=== PATIENT | female | born 1995 | race African-American/Black ===

== ENCOUNTER 2016-09-27 16:34 | Emergency (ER) | payer MEDICAID ==
[~2016-09-27] VITALS: Ht 162.6 cm; Wt 70.0 kg
[~2016-09-27 16:34] MED LIST: DOXY10TA PO; IBUP400 PO; IBUP800 PO; MACR100C2 PO; PENI500T PO
[2016-09-27 16:37] VITALS: BP 140/86; PULSE 76; RESP 16; TEMP 98.2; O2SAT 99
[2016-09-27] MEDS ORDERED: ONDANSETRON ODT 4 MG TAB PO ONE (17:00)
[2016-09-27] MEDS ORDERED: MUCI30TA2 PO (17:05)
[2016-09-27] MEDS ORDERED: ZOFR8TAB4 SL (17:05)
--- NOTE | 2016-09-27 17:05 | PD ---
HPI Chief Complaint: ENT Complaint Time Seen by Provider: 16:53 Travel History International Travel<30 days: No Contact w/Intl Traveler<30days: No Traveled to known affect area: No History of Present Illness HPI 21-year-old female here with complaint of ear pain. Patient notes a itchy, discomfort in the bilateral ears, nasal congestion and runny nose for the last week. She also notes associated nausea, vomiting. She is , and has had issues with this with previous . She has no abdominal pain, vaginal bleeding. She was seen in our ER previously and given a prescription for diceglis, but was unable to fill this due to insurance is not compliant. PFSH Past Medical History Hx Anticoagulant Therapy: No Diabetes: No Diminished Hearing: No ?: : 1 Para: 1 Social History Alcohol Use: Yes Tobacco Use: No Substance Use: No Allergies-Medications (Allergen,Severity, Reaction): Coded Allergies: No Known Allergies (Unverified , 08/28/16) Reported Meds & Prescriptions Reported Meds & Active Scripts Active Macrobid (Nitrofurantoin Monoh/Nitrofur Macro) 100 Mg Cap 100 Mg PO BID 5 Days Diclegis (Doxylamine-Pyridoxine) 10-10 Mg Tab 2 Tab PO DIRECTED Take 2 tablets at bedtime. One additional tablet may be taken in the morning or midafternoon. Do not take as needed. Taper off to discontinue. Pen Vk (Penicillin V Potassium) 500 Mg Tab 500 Mg PO Q6 Motrin 800 Mg Tab (Ibuprofen) 800 Mg Tab 800 Mg PO Q8H PRN 10 Days Reported Motrin 400 mg Tab (Ibuprofen) 400 Mg Tab 800 Mg PO DIRECTED Review of Systems Except as stated in HPI: all other systems reviewed are Neg Physical Exam Narrative GENERAL: Well-appearing female in no acute distress SKIN: Warm and dry. HEAD: Normocephalic. EYES: No scleral icterus. No injection or drainage. ENT: Mucous membranes pink and moist. TMs clear bilaterally. Clear occlusion behind both ear. Nasal mucosal injection. NECK: Supple CARDIOVASCULAR: Regular rate and rhythm. RESPIRATORY: No accessory muscle use. MUSCULOSKELETAL: Normal gait NEUROLOGICAL: Awake and alert. Normal speech. PSYCHIATRIC: Appropriate mood and affect; insight and judgment normal. Data Data Last Documented VS Vital Signs Date Time Temp Pulse Resp B/P Pulse Ox O2 Delivery O2 Flow Rate FiO2 09/27/16 16:37 98.2 76 16 140/86 99 Room Air Orders Ondansetron Odt (Zofran Odt) (09/27/16 17:00) [facility] Medical Decision Making Medical Screen Exam Complete: Yes Emergency Medical Condition: Yes Medical Record Reviewed: Yes Differential Diagnosis Bilateral ear pain, nausea. Patient has nasal mucosal injection, with clear effusion behind TMs bilaterally consistent with viral syndrome. Patient was instructed to use decongestant. With her nausea, she has had this his previous . She is well-appearing, clinically well-hydrated with normal vital signs. We'll treat with Zofran when necessary. Narrative Course Given Zofran. Diagnosis Primary Impression: Upper respiratory infection Qualified Code: J06.9 - Upper respiratory tract infection, unspecified type Additional Impression: Nausea/vomiting in Additional Instructions: Zofran as needed for nausea, vomiting. Mucinex as prescribed. Follow-up with [employer] as discussed. Med/Other Pt SpecificInfo: Prescription(s) given Scripts Dextromethorphan-Guaifenesin (Mucinex DM)30-600 Mg Tab1 Tab PO BID PRN (CHEST CONGESTION AND/OR COUGH) #10 TAB Ref 0 Prov:Isabella Mejia MD 09/27/16 Ondansetron Odt (Zofran Odt)8 Mg Tab8 Mg SL Q8H PRN (NAUSEA OR VOMITING) #10 TAB Ref 0 Prov:Isabella Mejia MD 09/27/16 Disposition: 01 DISCHARGE HOME Condition: Stable Isabella Mejia MD Sep 27, 2016 17:05
[2016-11-19] MEDS ORDERED: PREN1CAP7 PO (11:00)
[2016-11-24] MEDS ORDERED: AZIT250T3 PO (13:46)
[2016-11-24] MEDS ORDERED: METR0.7512 VAGINAL (13:46)
[2016-12-21] MEDS ORDERED: FERRTAB2 PO (16:24)
[2017-01-27] MEDS ORDERED: FERR325T72 PO (10:11)
[2017-02-17] MEDS ORDERED: TERC0.4C2 VAGINAL (11:35)
[2017-02-17] MEDS ORDERED: AMPI500C8 PO (11:35)
[2017-03-23] MEDS ORDERED: METR500T10 PO (16:52)
[2017-03-23] MEDS ORDERED: ZITH1POW PO (16:52)
[2017-03-23] MEDS ORDERED: TERC0.4C2 VAGINAL (16:53)
== END 2016-09-27 17:21 | disposition home or self-care (01) ==
LOC: NEPC 16:34
DX: O99.519 Diseases of the respiratory system complicating pregnancy, unspecified trimester (principal); J06.9 Acute upper respiratory infection, unspecified; O21.9 Vomiting of pregnancy, unspecified; Z3A.00 Weeks of gestation of pregnancy not specified
CPT/HCPCS: 99283

== ENCOUNTER 2016-10-27 10:15 | Emergency (ER) | payer MEDICAID ==
[~2016-10-27] VITALS: Ht 162.6 cm; Wt 67.0 kg
[~2016-10-27 10:15] MED LIST changes: -DOXY10TA PO; -IBUP400 PO; -IBUP800 PO; -MACR100C2 PO; -PENI500T PO; +ZOFR8TAB4 SL
[2016-10-27 10:23] VITALS: BP 118/79; PULSE 99; RESP 16; TEMP 98.3; O2SAT 100
[2016-10-27] MEDS ORDERED: SODIUM CHLOR 0.9% 1000 ML INJ 1,000 ML IV ONE (10:40)
[2016-10-27] MEDS ORDERED: ACETAMINOPHEN 325 MG TAB PO ONE (10:45)
[2016-10-27 10:52] LABS: BLOOD, URINE NEG (NEG); GLUCOSE,URINE NEG (NEG); KETONE, URINE NEG (NEG); NITRITE,URINE NEG (NEG)
[2016-10-27 11:00] LABS: BACTERIA, URINE OCC /hpf; COMMENT (UR) CULT NOT INDICATED; CULTURE IF INDICATED CULT NOT INDICATED; METHOD OF COLLECTION CLEAN CATCH; SQUAMOUS EPITHELIAL CELL URINE > 8 /hpf (0-5); URINE COLOR YELLOW (YELLW/STRAW); WBC, URINE 0-2 /hpf (0-5)
--- NOTE | 2016-10-27 11:02 | PD ---
HPI Chief Complaint: Related Problem Time Seen by Provider: 10:39 Travel History International Travel<30 days: No Contact w/Intl Traveler<30days: No Traveled to known affect area: No History of Present Illness HPI 21-year-old female with last menstrual cycle of 06/11/16 presents with lower abdominal pain. She denies any dysuria, vaginal bleeding, vaginal discharge or other concurrent complaints. She states she has had difficulty getting in with Dr. Winchester her special education associate with her first child and given the symptoms this morning she elected to come in. She last took Tylenol last night she denies taking anything yet today. Quality is pressure. Severity is moderate. She denies migration the pain. Location is lower. She first found out she was at about 9 weeks with a home test PFS Past Medical History Hx Anticoagulant Therapy: No Diabetes: No Diminished Hearing: No ?: LMP: 06/11/16 : 1 Para: 1 Past Surgical History Surgical History: No Previous Surgery Social History Alcohol Use: No Tobacco Use: No Substance Use: No Allergies-Medications (Allergen,Severity, Reaction): Coded Allergies: No Known Allergies (Unverified , 10/27/16) Reported Meds & Prescriptions Reported Meds & Active Scripts Active Macrobid (Nitrofurantoin Monoh/Nitrofur Macro) 100 Mg Cap 100 Mg PO BID 7 Days Zofran Odt (Ondansetron Odt) 8 Mg Tab 8 Mg SL Q8H PRN Review of Systems Except as stated in HPI: all other systems reviewed are Neg Physical Exam Narrative GENERAL: Well-nourished, well-developed patient. Well-appearing SKIN: Warm and dry. HEAD: Normocephalic and atraumatic. EYES: No injection or drainage. ENT: No nasal drainage noted. NECK: Supple, trachea midline. CARDIOVASCULAR: Regular rate and rhythm RESPIRATORY: Breath sounds equal bilaterally. No accessory muscle use. GASTROINTESTINAL: Abdomen soft, mild tenderness in suprapubic area, no rebound or guarding EXTREMITIES: No edema. BACK: Nontender without obvious deformity. NEUROLOGICAL: Awake and alert. Motor and sensory grossly within normal limits. Normal speech. Data Data Last Documented VS Vital Signs Date Time Temp Pulse Resp B/P Pulse Ox O2 Delivery O2 Flow Rate FiO2 10/27/16 10:23 98.3 99 16 118/79 100 Orders Urinalysis - C+S If Indicated (10/27/16 10:22) Sodium Chlor 0.9% 1000 Ml Inj (Ns 1000 M (10/27/16 10:40) Ed Urine Pregnancytest Poc (10/27/16 10:40) Acetaminophen (Tylenol) (10/27/16 10:45) Labs Laboratory Tests Test 10/27/16 10:40 Urine Collection Type CLEAN CATCH Urine Color YELLOW Urine Turbidity CLEAR Urine pH 6.0 Urine Specific [place] 1.028 Urine Protein TRACE mg/dL Urine Glucose (UA) NEG mg/dL Urine Ketones NEG mg/dL Urine Occult Blood NEG Urine Nitrite NEG Urine Bilirubin NEG Urine Leukocyte Esterase NEG Urine WBC 0-2 /hpf Urine Squamous Epithelial > 8 /hpf Cells Urine Bacteria OCC /hpf Microscopic Urinalysis Comment CULT NOT INDICATED Urine Collection Time 10:40 [facility] Medical Decision Making Medical Screen Exam Complete: Yes Emergency Medical Condition: Yes Medical Record Reviewed: Yes (past history confirmed) Interpretation(s) UA with bacteriuria without signs of infection Differential Diagnosis UTI, stone, so Nael Narrative Course Patient states place her at 19 weeks 5 days, benign abdominal exam. Will check urinalysis and bedside ultrasound and reevaluate Patient agrees to personally drive herself to the OB ER in [facility] for further evaluation. Given return instructions Procedures Procedure Narrative Emergency Department Pelvic ultrasound was performed with patient consent. The curvilinear probe was used in the transverse and sagittal views within the suprapubic region revealing single intrauterine . heart rate was 141. Head circumference was about 17 weeks, movement noted Physician Communication Physician Communication dr cunningham covering for OB hospitalist states can send to OB ER by private vehicle without further testing Diagnosis Primary Impression: Intrauterine Additional Impression: Bacteria in urine Patient Instructions: General Instructions Additional Instructions: head to OB ER for further care, take macrobid as directed, tylenol as needed for pain Med/Other Pt SpecificInfo: Prescription(s) given Scripts Nitrofurantoin Monohydrate Macrocrystals (Macrobid)100 Mg [id number] Mg PO BID 7 Days Prov:Lina Martino MD 10/27/16 Disposition: 70 TRANSFER TO OTHER FACILITY (ob ed by private vehicle) Condition: Stable Lina Martino MD Oct 27, 2016 11:02
[2016-10-27] MEDS ORDERED: MACR100C2 PO (11:12)
[2016-11-19] MEDS ORDERED: PREN1CAP7 PO (11:00)
[2016-11-24] MEDS ORDERED: AZIT250T3 PO (13:46)
[2016-11-24] MEDS ORDERED: METR0.7512 VAGINAL (13:46)
[2016-12-21] MEDS ORDERED: FERRTAB2 PO (16:24)
[2017-01-27] MEDS ORDERED: FERR325T72 PO (10:11)
[2017-02-17] MEDS ORDERED: AMPI500C8 PO (11:35)
[2017-02-17] MEDS ORDERED: TERC0.4C2 VAGINAL (11:35)
[2017-03-23] MEDS ORDERED: METR500T10 PO (16:52)
[2017-03-23] MEDS ORDERED: ZITH1POW PO (16:52)
[2017-03-23] MEDS ORDERED: TERC0.4C2 VAGINAL (16:53)
== END 2016-10-27 11:25 | disposition short-term general hospital (02) ==
LOC: PHED 10:15
DX: O23.31 Infections of other parts of urinary tract in pregnancy, first trimester (principal)
CPT/HCPCS: 81001; 84703; 99284

== ENCOUNTER 2016-11-14 11:46 | Emergency (ER) | payer MEDICAID ==
[~2016-11-14 11:46] MED LIST changes: +MACR100C2 PO
[2016-11-14 12:47] LABS: BLOOD, URINE NEG (NEG); COMMENT (UR) CULT NOT INDICATED; CULTURE IF INDICATED CULT NOT INDICATED; GLUCOSE,URINE NEG (NEG); KETONE, URINE TRACE mg/dL (NEG); MUCUS URINE FEW /lpf (OCC); NITRITE,URINE NEG (NEG); SQUAMOUS EPITHELIAL CELL URINE 10 /hpf (0-5); TRANSITIONAL EPI CELLS, URINE <1 /hpf; URINE COLOR YELLOW (YELLW/STRAW)
[2016-11-14 13:22] LABS: AUTOMATED NEUTROPHIL # 7.5 TH/MM3 (1.8-7.7); BASOPHIL % 0.1 % (0.0-2.0); EOSINOPHIL # 0.6 TH/MM3 (0-0.4); EOSINOPHIL % 5.6 % (0.0-4.0); HEMATOCRIT 27.2 % (35.0-46.0); HEMO FLAGS DIFF FINAL; LYMPH % 18.7 % (9.0-44.0); MEAN CELL VOLUME 79.7 FL (80.0-100.0); MEAN CORPUSCULAR HEMOGLOBIN 28.1 PG (27.0-34.0); MEAN CORPUSCULAR HGB CONC 35.3 % (32.0-36.0); MONO % 6.5 % (0.0-8.0); NEUT % 69.1 % (16.0-70.0); PLATELET COUNT 328 TH/MM3 (150-450); RED BLOOD COUNT 3.42 MIL/MM3 (4.00-5.30); RED CELL DISTRIBUTION WIDTH 15.1 % (11.6-17.2); WHITE BLOOD COUNT 10.9 TH/MM3 (4.0-11.0)
--- NOTE | 2016-11-14 13:46 | PD ---
HPI Chief Complaint Abdominal pain Date Seen: Nov 14, 2016 Travel History International Travel<30 Days: No Contact w/Intl Traveler<30Days: No Known Affected Area: No History of Present Illness HPI This patient is a 21-year-old white female at 18 weeks gestation by ultrasound done here today, she had no care to date and did not know how far along she was,. by her dates she was 22 week , she complains of abdominal pain the last 2-3 days no bleeding leakage of fluid or contractions. Heart tones are documented by ultrasound Para: 1 : 2 History Obstetric History Obstetric History One vaginal delivery in the past Social History Alcohol Use: No Tobacco Use: No Substance Abuse: No Allergies-Medications (Allergen,Severity, Reaction): Coded Allergies: No Known Allergies (Unverified , 11/14/16) Home Meds Active Scripts Nitrofurantoin Monohydrate Macrocrystals (Macrobid)100 Mg [id number] Mg PO BID 7 Days Prov:Lina Martino MD 10/27/16 Ondansetron Odt (Zofran Odt)8 Mg Tab8 Mg SL Q8H PRN (NAUSEA OR VOMITING) #10 TAB Ref 0 Prov:Isabella Mejia MD 09/27/16 Review of Systems General / Constitutional: No: Fever, Weight Gain, Chills, Other Eyes: No: Diploplia, Blurred Vision, Visual changes, Pain, Photophobia HENT: No: Headaches, Vertigo, Lightheadedness Cardiovascular: No: Irregular Rhythm, Chest Pain or Discomfort, Palpitations, Tachycardia, Syncope, Varicosities, Edema, Cyanosis Respiratory: No: Cough, Short of Breath, Other Gastrointestinal: Abdominal Pain, No: Nausea, Vomiting, Diarrhea Genitourinary: No: Decreased Urinary Output, Oliguria Musculoskeletal: No: Limited ROM, Weakness, Cramping, Edema, Pain Skin: No Rash, No Itching, No Dryness, No Lumps, No Change in Pigmentation, No Change in Nails, No Alopecia, No Lesions Neurologic: No: Weakness, Dizziness, Syncope, Focal Abnormalities, Coordination Problem, Headache, Slurred Speech, Seizures Psychiatric: No: Depression, Suicidal Ideations, Homicidal Ideation Endocrine: No: Heat Intolerance, Cold Intolerance, Polydipsia, Polyuria, Other Physical Exam Narrative GENERAL: Well-nourished, well-developed patient. SKIN: Warm and dry. HEAD: Normocephalic and atraumatic. EYES: No scleral icterus. No injection or drainage. ENT: No nasal drainage noted. Mucous membranes pink. Airway patent. NECK: Supple, trachea midline. No JVD. CARDIOVASCULAR: Regular rate and rhythm without murmurs, gallops, or rubs. RESPIRATORY: Breath sounds equal bilaterally. No accessory muscle use. BREASTS: Bilateral exam showed no masses , no retractions, no nipple discharge. ABDOMEN/GI: Abdomen soft, non-tender, bowel sounds present, no rebound, no guarding Gravid to [-20] weeks size Fundal Height: [-] Below umbilicus GENITOURINARY: External Genitalia: intact and normal in appearance BUS glands: [-] Cervix: [-] Closed Dilatation: [-] Closed Effacement: [-] Thick Station: [-3] Presentation: [-] Transverse by ultrasound Membranes: [intact ] Uterine Contractions: [-]none FHT's: Baseline: [-] 144 -] EXTREMITIES: No cyanosis or edema. BACK: Nontender without obvious deformity. No CVA tenderness. NEUROLOGICAL: Awake and alert. Motor and sensory grossly within normal limits. Five out of 5 muscle strength in all muscle groups. Normal speech. Data Data Orders Vital Signs (Adult) .ON ADMISSION (11/14/16 12:05) ^ Labor Status (11/14/16 12:05) Urinalysis - C+S If Indicated (11/14/16 12:05) Diet Liquid (11/14/16 Lunch) Rubella Immune Status (11/14/16 12:05) Hepatitis Profile (11/14/16 12:05) Rapid Plasma Regin (Rpr) W Ttr (11/14/16 12:05) Type And Screen (11/14/16 12:05) Complete Blood Count With Diff (11/14/16 12:05) Special Serology (11/14/16 12:05) Ob Poc Ultrasound (11/14/16 ) Labs Percent done here on OB ED today shows a single intrauterine at 18 weeks 3 days EDC 04/15/17, baby is in a transverse presentation, adequate amniotic fluid posterior placenta grade 0, normal anatomy scan done Laboratory Tests Test 11/14/16 11/14/16 12:00 12:40 Urine Color YELLOW Urine Turbidity HAZY Urine pH 6.0 Urine Specific [place] 1.023 Urine Protein TRACE Urine Glucose (UA) NEG Urine Ketones TRACE Urine Occult Blood NEG Urine Nitrite NEG Urine Bilirubin NEG Urine Urobilinogen LESS THAN 2.0 Urine Leukocyte Esterase MOD Urine WBC 4 Urine Squamous Epithelial 10 Cells Urine Transitional Epithelial <1 Cells Urine Mucus FEW Microscopic Urinalysis Comment CULT NOT INDICATED White Blood Count 10.9 Red Blood Count 3.42 Hemoglobin 9.6 Hematocrit 27.2 Mean Corpuscular Volume 79.7 Mean Corpuscular Hemoglobin 28.1 Mean Corpuscular Hemoglobin 35.3 Concent Red Cell Distribution Width 15.1 Platelet Count 328 Mean Platelet Volume 6.8 Neutrophils (%) (Auto) 69.1 Lymphocytes (%) (Auto) 18.7 Monocytes (%) (Auto) 6.5 Eosinophils (%) (Auto) 5.6 Basophils (%) (Auto) 0.1 Neutrophils # (Auto) 7.5 Lymphocytes # (Auto) 2.0 Monocytes # (Auto) 0.7 Eosinophils # (Auto) 0.6 Basophils # (Auto) 0.0 CBC Comment DIFF FINAL Differential Comment MDM Interpretation(s) This patient is a 21-year-old black female at 18-1/2 weeks gestation by an ultrasound done here today giving her an EDC is 04/15/17, she has abdominal pain for the last several days cervix is closed thick and high urinalysis is negative, she had labs drawn today because she's had no care, labs shows a mild anemia otherwise within normal limits Plan The patient to take Tylenol liberally for pain as directed increase her fluid intake for hydration she may use a heating pad on low across her lower abdomen or on her back or soak in hot bathtub. Bedrest advised if she's having significant discomfort. She states she is going to begin her care soon and that she was encouraged to do this as well. She was given information about the ultrasound that she is 18 weeks 3 days due date 04/15/17 and she'll be able to past that information along.Also given info on [facility] Diagnosis Diagnosis: Primary Impression: Abdominal pain during in second trimester Additional Impressions: No care in current in second trimester Anemia affecting in second trimester Disposition: 01 DISCHARGE HOME Condition: Stable Stephen Lopez II, MD Nov 14, 2016 13:46
[2016-11-14 13:54] LABS: RUBELLA IGG ANTIBODY 70.9 IU/mL (10.0-500.0); RUBELLA STATUS IMMUNE (IMMUNE)
[2016-11-16 10:04] LABS: RAPID PLASMA REAGIN SCREEN NON-REACTIVE (NON-REACTVE)
[2016-11-19] MEDS ORDERED: PREN1CAP7 PO (11:00)
[2016-11-24] MEDS ORDERED: AZIT250T3 PO (13:46)
[2016-11-24] MEDS ORDERED: METR0.7512 VAGINAL (13:46)
[2016-12-21] MEDS ORDERED: FERRTAB2 PO (16:24)
[2017-01-27] MEDS ORDERED: FERR325T72 PO (10:11)
[2017-02-17] MEDS ORDERED: AMPI500C8 PO (11:35)
[2017-02-17] MEDS ORDERED: TERC0.4C2 VAGINAL (11:35)
[2017-03-23] MEDS ORDERED: METR500T10 PO (16:52)
[2017-03-23] MEDS ORDERED: ZITH1POW PO (16:52)
[2017-03-23] MEDS ORDERED: TERC0.4C2 VAGINAL (16:53)
== END 2016-11-14 13:51 | disposition home or self-care (01) ==
LOC: HOBED 11:46
DX: O26.892 Other specified pregnancy related conditions, second trimester (principal); R10.9 Unspecified abdominal pain; O99.012 Anemia complicating pregnancy, second trimester; D64.9 Anemia, unspecified; O09.32 Supervision of pregnancy with insufficient antenatal care, second trimester; Z3A.18 18 weeks gestation of pregnancy
CPT/HCPCS: 36415; 76815; 80074; 81001; 85025; 86592; 86703; 86762; 86850; 86900; 86901

== ENCOUNTER 2016-12-30 04:35 | Emergency (ER) | payer MEDICAID ==
[~2016-12-30 04:35] MED LIST changes: +FERRTAB2 PO; -MACR100C2 PO; +PREN1CAP7 PO; -ZOFR8TAB4 SL
--- NOTE | 2016-12-30 05:19 | PD ---
HPI Chief Complaint Bilateral rib pain Date Seen: Dec 30, 2016 Travel History International Travel<30 Days: No Contact w/Intl Traveler<30Days: No Known Affected Area: No History of Present Illness HPI 21-year-old who is at 24 weeks 6 days comes in today complaining of bilateral lower rib cage pain. This has been going on for about the past week and she notiiced it most when she tries to take a deep breath. She feels as though at times she can't take a deep breath. She denies chest pain denies abdominal pain or contractions, denies vaginal bleeding or discharge. She is experiencing normal movement. She has a family history of asthma she herself denies asthma and denies any recent respiratory infections. Patient has had coitus within the past 24 hours Para: 1 : 2 History Past Medical History Medical History: Denies Significant Hx Past Surgical History Surgical History: No Previous Surgery Family History Family History: Negative Social History Alcohol Use: No Tobacco Use: No Substance Abuse: No Allergies-Medications (Allergen,Severity, Reaction): Coded Allergies: No Known Allergies (Unverified , 12/17/16) Home Meds Active Scripts Multi-Vit/Iron-Folic Hpou-Y82-Plw C (Ferralet)90-1-0.012-120 mg Tab1 Tab PO DAILY #60 BOTTLE Ref 4 Prov:Anjali Deleon CNM [facility] 12/21/16 W/O Vit A W/ Fe Fumar (Citranatal Daphne)27-1-260 Mg Cap1 Cap PO DAILY #30 CAP Ref 11 Prov:Dian Sky [facility] 11/19/16 Review of Systems Except as stated in HPI: all other systems reviewed are Neg Physical Exam Narrative GENERAL: Well-nourished, well-developed patient. SKIN: Warm and dry. HEAD: Normocephalic and atraumatic. EYES: No scleral icterus. No injection or drainage. ENT: No nasal drainage noted. Mucous membranes pink. Airway patent. NECK: Supple, trachea midline. No JVD. CARDIOVASCULAR: Regular rate and rhythm without murmurs, gallops, or rubs. RESPIRATORY: Breath sounds equal bilaterally. No accessory muscle use. BREASTS: Bilateral exam showed no masses , no retractions, no nipple discharge. ABDOMEN/GI: Abdomen soft, non-tender, bowel sounds present, no rebound, no guarding Gravid to [-24] weeks size Fundal Height: [-] GENITOURINARY: External Genitalia: intact and normal in appearance BUS glands: [Normal-] Cervix: [Posterior-] Dilatation: [-Closed] Effacement: [Long-] Station: [High-] Presentation: [-Vertex] Membranes: Intact Uterine Contractions: Absent FHT's: Category: [-1] Baseline: 149 Reactive: Moderate Variability: Moderate Decels: Absent EXTREMITIES: No cyanosis or edema. BACK: Nontender without obvious deformity. No CVA tenderness. NEUROLOGICAL: Awake and alert. Motor and sensory grossly within normal limits. Five out of 5 muscle strength in all muscle groups. Normal speech. Data Data Vital Signs Reviewed: No MDM Plan 21-year-old female who seems to be experiencing some dyspnea associated with without any respiratory findings. Lungs are clear with a 99% oxygen saturation normal vital signs. Patient will follow-up with her appointment tomorrow. Diagnosis Diagnosis: Primary Impression: 24 weeks gestation of Additional Impression: Gestational dyspnea in second trimester Disposition: DISCHARGE HOME Courtney Leija MD Dec 30, 2016 05:19
[2017-01-27] MEDS ORDERED: FERR325T72 PO (10:11)
[2017-02-17] MEDS ORDERED: TERC0.4C2 VAGINAL (11:35)
[2017-02-17] MEDS ORDERED: AMPI500C8 PO (11:35)
[2017-03-23] MEDS ORDERED: METR500T10 PO (16:52)
[2017-03-23] MEDS ORDERED: ZITH1POW PO (16:52)
[2017-03-23] MEDS ORDERED: TERC0.4C2 VAGINAL (16:53)
== END 2016-12-30 05:22 | disposition home or self-care (01) ==
LOC: HOBED 04:35
DX: O99.512 Diseases of the respiratory system complicating pregnancy, second trimester (principal); R06.00 Dyspnea, unspecified; R07.81 Pleurodynia; Z3A.24 24 weeks gestation of pregnancy
CPT/HCPCS: 99284

== ENCOUNTER 2017-02-07 14:11 | Emergency (ER) | payer MEDICAID ==
[~2017-02-07] VITALS: Ht 162.6 cm; Wt 71.7 kg
[~2017-02-07 14:11] MED LIST changes: +FERR325T72 PO; -PREN1CAP7 PO
[2017-02-07 15:28] LABS: BLOOD, URINE NEG (NEG); COMMENT (UR) CULTURE INDICATED; CULTURE IF INDICATED CULTURE INDICATED; GLUCOSE,URINE NEG (NEG); KETONE, URINE NEG (NEG); MUCUS URINE FEW /lpf (OCC); NITRITE,URINE NEG (NEG); SQUAMOUS EPITHELIAL CELL URINE 9 /hpf (0-5); URINE COLOR YELLOW (YELLW/STRAW)
[2017-02-07] MEDS ORDERED: MACR100C2 PO (15:40)
--- NOTE | 2017-02-07 15:40 | PD ---
HPI Chief Complaint upper abd pain , SOB Date Seen: February 07, 2017 Time Seen: 14:30 Travel History International Travel<30 Days: No Contact w/Intl Traveler<30Days: No Known Affected Area: No History of Present Illness HPI 21 y/o BF 30 -31 wks c/o upper abd pain , some SOB , no bleeding or SROM , FHR reactive , no CTXs seen . pulse ox 100 % Para: 1 : 2 History Obstetric History Obstetric History 1 vag del Social History Alcohol Use: No Tobacco Use: No Substance Abuse: No Allergies-Medications (Allergen,Severity, Reaction): Coded Allergies: No Known Allergies (Unverified , 02/03/17) Home Meds Active Scripts Ferrous Gluconate 325 Mg [id number] Mg PO DAILY #30 TAB Ref 6 Prov:Anjali Deleon CNM [facility] 01/27/17 Multi-Vit/Iron-Folic Payo-Y96-Cqf C (Ferralet)90-1-0.012-120 mg Tab1 Tab PO DAILY #60 BOTTLE Ref 4 Prov:Anjali Deleon CNM [facility] 12/21/16 Review of Systems General / Constitutional: No: Fever, Weight Gain, Chills, Other Eyes: No: Diploplia, Blurred Vision, Visual changes, Pain, Photophobia HENT: No: Headaches, Vertigo, Lightheadedness Cardiovascular: No: Irregular Rhythm, Chest Pain or Discomfort, Palpitations, Tachycardia, Syncope, Varicosities, Edema, Cyanosis Respiratory: Short of Breath, No: Cough, Other Gastrointestinal: Abdominal Pain, No: Nausea, Vomiting, Diarrhea Genitourinary: No: Decreased Urinary Output, Oliguria Musculoskeletal: No: Limited ROM, Weakness, Cramping, Edema, Pain Skin: No Rash, No Itching, No Dryness, No Lumps, No Change in Pigmentation, No Change in Nails, No Alopecia, No Lesions Neurologic: No: Weakness, Dizziness, Syncope, Focal Abnormalities, Coordination Problem, Headache, Slurred Speech, Seizures Psychiatric: No: Depression, Suicidal Ideations, Homicidal Ideation Endocrine: No: Heat Intolerance, Cold Intolerance, Polydipsia, Polyuria, Other Physical Exam Narrative GENERAL: Well-nourished, well-developed patient. SKIN: Warm and dry. HEAD: Normocephalic and atraumatic. EYES: No scleral icterus. No injection or drainage. ENT: No nasal drainage noted. Mucous membranes pink. Airway patent. NECK: Supple, trachea midline. No JVD. CARDIOVASCULAR: Regular rate and rhythm without murmurs, gallops, or rubs. RESPIRATORY: Breath sounds equal bilaterally. No accessory muscle use. BREASTS: Bilateral exam showed no masses , no retractions, no nipple discharge. ABDOMEN/GI: Abdomen soft, non-tender, bowel sounds present, no rebound, no guarding Gravid to [30-] weeks size Fundal Height: [30-] GENITOURINARY: External Genitalia: intact and normal in appearance BUS glands: [-] Cervix: [closed-] Dilatation: [-0] Effacement: [-thick] Station: [-3] Membranes: [intact ] Uterine Contractions: [none-] FHT's: Category: [1-] Baseline: [133-] Reactive: [yes-] Variability: [-mod] Decels: [-none] EXTREMITIES: No cyanosis or edema. BACK: Nontender without obvious deformity. No CVA tenderness. NEUROLOGICAL: Awake and alert. Motor and sensory grossly within normal limits. Five out of 5 muscle strength in all muscle groups. Normal speech. Data Data Orders Vital Signs (Adult) .ON ADMISSION (02/07/17 14:27) ^ Labor Status (02/07/17 14:27) Urinalysis - C+S If Indicated (02/07/17 14:27) Fentanyl Inj (Fentanyl Inj) (02/07/17 14:45) Urine Culture (02/07/17 14:30) Labs Laboratory Tests Test 02/07/17 14:30 Urine Color YELLOW Urine Turbidity HAZY Urine pH 6.0 Urine Specific [place] 1.023 Urine Protein TRACE Urine Glucose (UA) NEG Urine Ketones NEG Urine Occult Blood NEG Urine Nitrite NEG Urine Bilirubin NEG Urine Urobilinogen LESS THAN 2.0 Urine Leukocyte Esterase LARGE Urine RBC 10 Urine WBC 39 Urine Squamous Epithelial 9 Cells Urine Mucus FEW Microscopic Urinalysis Comment CULTURE INDICATED Date/Time Procedure Status Source Growth 02/07/17 14:30 Urine Culture Received Urine Clean Catch Pending [facility] Interpretation(s) 30-31 wks with upper abd pain sounding like hyperacidity ./ GI related , FHR reactive no CTXs, czx closed thick , UA + for UTI Plan begin po macrobid 100 mg bid for 1 wk use antacids po pill and liquid , po tylenol , po fluids , bedrest , elevate head of bed at night Diagnosis Diagnosis: Primary Impression: Recurrent upper abdominal pain Additional Impression: UTI (urinary tract infection) Disposition: 01 DISCHARGE HOME Condition: Stable Scripts Nitrofurantoin Monohydrate Macrocrystals (Macrobid)100 Mg [id number] Mg PO BID #14 CAP Ref 0 Prov:Stephen Lopez II, MD 02/07/17 Stephen Lopez II, MD February 07, 2017 15:40
[2017-02-17] MEDS ORDERED: AMPI500C8 PO (11:35)
[2017-02-17] MEDS ORDERED: TERC0.4C2 VAGINAL (11:35)
[2017-03-23] MEDS ORDERED: ZITH1POW PO (16:52)
[2017-03-23] MEDS ORDERED: METR500T10 PO (16:52)
[2017-03-23] MEDS ORDERED: TERC0.4C2 VAGINAL (16:53)
== END 2017-02-07 16:14 | disposition home or self-care (01) ==
LOC: HOBED 14:11
DX: O23.43 Unspecified infection of urinary tract in pregnancy, third trimester (principal); R10.10 Upper abdominal pain, unspecified; R06.02 Shortness of breath
CPT/HCPCS: 81001; 87086; 99284

== ENCOUNTER 2017-02-15 20:22 | Emergency (ER) | payer MEDICAID ==
[~2017-02-15 20:22] MED LIST changes: +MACR100C2 PO
[2017-02-15] MEDS ORDERED: LACTATED RINGER'S 1000 ML INJ 1,000 ML IV SCH (21:04)
--- NOTE | 2017-02-15 21:11 | PD ---
HPI Chief Complaint Abdominal pain Date Seen: February 15, 2017 Time Seen: 21:07 Travel History International Travel<30 Days: No Contact w/Intl Traveler<30Days: No Known Affected Area: No History of Present Illness HPI 21-year-old who is at 31 weeks and 4 days today comes in today complaining of abdominal pain for the past 1 hour. Initially it was up in the epigastric area but now it is suprapubic. Patient on Macrobid for the past week and has 1 day left of the medication. Patient had a similar type of abdominal pain week ago when she was initially assessed with a urinary tract infection. Patient has had intercourse within the past 24 hours, denies vaginal bleeding, denies vaginal discharge. Patient states abdominal pain is somewhat dull in nature, continuous, and is improved with rest. Para: 1 : 2 History Past Medical History Medical History: Denies Significant Hx Obstetric History Obstetric History Spontaneous vaginal delivery Past Surgical History Surgical History: No Previous Surgery Family History Family History: Negative Social History Alcohol Use: No Tobacco Use: No Substance Abuse: No Allergies-Medications (Allergen,Severity, Reaction): Coded Allergies: No Known Allergies (Unverified , 02/03/17) Home Meds Active Scripts Nitrofurantoin Monohydrate Macrocrystals (Macrobid)100 Mg [id number] Mg PO BID #14 CAP Ref 0 Prov:Stephen Lopez II, MD 02/07/17 Ferrous Gluconate 325 Mg [id number] Mg PO DAILY #30 TAB Ref 6 Prov:Anjali Deleon CNM [facility] 01/27/17 Multi-Vit/Iron-Folic Hyju-W08-Mvo C (Ferralet)90-1-0.012-120 mg Tab1 Tab PO DAILY #60 BOTTLE Ref 4 Prov:Anjali Deleon CNM [facility] 12/21/16 Review of Systems Except as stated in HPI: all other systems reviewed are Neg Physical Exam Narrative GENERAL: Well-nourished, well-developed patient. SKIN: Warm and dry. HEAD: Normocephalic and atraumatic. EYES: No scleral icterus. No injection or drainage. ENT: No nasal drainage noted. Mucous membranes pink. Airway patent. NECK: Supple, trachea midline. No JVD. CARDIOVASCULAR: Regular rate and rhythm without murmurs, gallops, or rubs. RESPIRATORY: Breath sounds equal bilaterally. No accessory muscle use. BREASTS: Bilateral exam showed no masses , no retractions, no nipple discharge. ABDOMEN/GI: Abdomen soft, non-tender, bowel sounds present, no rebound, no guarding Gravid to [-32] weeks size Fundal Height: [-32] GENITOURINARY: External Genitalia: intact and normal in appearance BUS glands: [Normal-] Cervix: [Posterior-] Dilatation: [-Closed] Effacement: Long Station: High Presentation: Breech Membranes: Intact Uterine Contractions: Irregular, occasional FHT's: Category: 1 Baseline: 140 Reactive: Moderate Variability: Moderate Decels: Absent EXTREMITIES: No cyanosis or edema. BACK: Nontender without obvious deformity. No CVA tenderness. NEUROLOGICAL: Awake and alert. Motor and sensory grossly within normal limits. Five out of 5 muscle strength in all muscle groups. Normal speech. Patient be evaluated after IV fluids with improvement of uterine irritability Data Data Orders Vital Signs (Adult) .ON ADMISSION (02/15/17 21:04) ^ Labor Status (02/15/17 21:04) Urinalysis - C+S If Indicated (02/15/17 21:04) Lactated Ringer's 1000 Ml Inj (Lr 1000 M (02/15/17 21:04) Lactated Ringer's 1000 Ml Inj (Lr 1000 M (02/15/17 21:15) Labs Laboratory Tests Test 02/15/17 20:31 Urine Color YELLOW Urine Turbidity HAZY Urine pH 7.0 Urine Specific Section 1.017 Urine Protein TRACE mg/dL Urine Glucose (UA) NEG mg/dL Urine Ketones NEG mg/dL Urine Occult Blood NEG Urine Nitrite NEG Urine Bilirubin NEG Urine Urobilinogen LESS THAN 2.0 MG/DL Urine Leukocyte Esterase LARGE Urine RBC 5 /hpf Urine WBC 27 /hpf Urine Squamous Epithelial 7 /hpf Cells Urine Amorphous Sediment RARE Urine Bacteria RARE /hpf Urine Mucus FEW /lpf Microscopic Urinalysis Comment CULTURE INDICATED MDM Plan 21-year-old at 31-32 weeks gestation with persistent urinary tract infection based on urinalysis Will send for urine culture Rocephin 1 g will be given IV given the resistance to Macrobid Diagnosis Diagnosis: Primary Impression: 31 weeks gestation of Additional Impression: Urinary tract infection affecting care of mother in third trimester, antepartum Disposition: DISCHARGE HOME Courtney Leija MD February 15, 2017 21:11
[2017-02-15 21:15] VITALS: RESP 18
[2017-02-15] MEDS ORDERED: LACTATED RINGER'S 1000 ML INJ 1,000 ML IV ONE (21:15)
[2017-02-15 21:23] LABS: BACTERIA, URINE RARE /hpf; BLOOD, URINE NEG (NEG); COMMENT (UR) CULTURE INDICATED; CULTURE IF INDICATED CULTURE INDICATED; GLUCOSE,URINE NEG (NEG); KETONE, URINE NEG (NEG); MUCUS URINE FEW /lpf (OCC); NITRITE,URINE NEG (NEG); SQUAMOUS EPITHELIAL CELL URINE 7 /hpf (0-5); URINE COLOR YELLOW (YELLW/STRAW)
[2017-02-15] MEDS ORDERED: cefTRIAXone INJ 1,000 MG in SODIUM CHLORIDE 0.9% INJ 100 ML IV ONE (21:30)
[2017-02-15 22:30] VITALS: RESP 18
[2017-02-17] MEDS ORDERED: AMPI500C8 PO (11:35)
[2017-02-17] MEDS ORDERED: TERC0.4C2 VAGINAL (11:35)
[2017-03-23] MEDS ORDERED: METR500T10 PO (16:52)
[2017-03-23] MEDS ORDERED: ZITH1POW PO (16:52)
[2017-03-23] MEDS ORDERED: TERC0.4C2 VAGINAL (16:53)
== END 2017-02-15 22:54 | disposition home or self-care (01) ==
LOC: HOBED 20:22
DX: O23.43 Unspecified infection of urinary tract in pregnancy, third trimester (principal); Z3A.31 31 weeks gestation of pregnancy
CPT/HCPCS: 81001; 86403; 87086; 96361; 96374; 99284; J0696; J7120

== ENCOUNTER 2017-04-08 18:06 | Emergency (ER) | payer MEDICAID ==
[~2017-04-08] VITALS: Ht 162.6 cm; Wt 73.9 kg
[~2017-04-08 18:06] MED LIST changes: -MACR100C2 PO
--- NOTE | 2017-04-08 19:16 | PD ---
HPI Chief Complaint Bad yeast infection and itching Date Seen: Apr 08, 2017 Travel History International Travel<30 Days: No Contact w/Intl Traveler<30Days: No Known Affected Area: No History of Present Illness HPI 21-year-old black female at 39 weeks who complains of bad itching in that discharge was turned green now started out as white. She's [facility] of an initially a 7 day over- the-counter yeast cream. She did not improve well enough so she was given told to take a Gynazole-1 one time yeast preparation she has tried this and she said it helped some but now it's worse again, the last time she used anything was yesterday she used some amount of vaginal preparation cream, she denies any OB problems no bleeding leakage of heart rate tracing is reactive and she is only having an occasional contraction Para: 1 : 2 History Obstetric History Obstetric History One vaginal delivery Social History Alcohol Use: No Tobacco Use: No Substance Abuse: No Allergies-Medications (Allergen,Severity, Reaction): Coded Allergies: No Known Allergies (Unverified , 04/07/17) Home Meds Active Scripts Ferrous Gluconate 325 Mg Bat659 Mg PO DAILY #30 TAB Ref 6 Prov:Drew Gonzales MD 04/01/17 Multi-Vit/Iron-Folic Gduz-O62-Zsg C (Ferralet)90-1-0.012-120 mg Tab1 Tab-Cap PO DAILY #60 BOTTLE Ref 4 Prov:Drew Gonzales MD 04/01/17 Discontinued Scripts Terconazole Vaginal Cream 0.4 % Cream1 Appl VAGINAL HS #45 GM Ref 0 For seven days Prov:Dian Sky 03/23/17 Metronidazole 500 Mg Qew590 Mg PO BID #14 TAB Ref 0 Prov:Dian Sky 03/23/17 Azithromycin Powder Packet (Zithromax Powder Packet)1 Gm Powderpack1 Gm PO ONCE #1 PKT Ref 0 Mix with water according to packet instructions before use. Prov:Dian Sky 03/23/17 Ferrous Gluconate 325 Mg Jpf371 Mg PO DAILY #30 TAB Ref 6 Prov:Anjali Deleon CNMP 01/27/17 Multi-Vit/Iron-Folic Lprd-A44-Pqh C (Ferralet)90-1-0.012-120 mg Tab1 Tab PO DAILY #60 BOTTLE Ref 4 Prov:Anjali Deleon CNM 12/21/16 Review of Systems General / Constitutional: No: Fever, Weight Gain, Chills, Other Eyes: No: Diploplia, Blurred Vision, Visual changes, Pain, Photophobia HENT: No: Headaches, Vertigo, Lightheadedness Cardiovascular: No: Irregular Rhythm, Chest Pain or Discomfort, Palpitations, Tachycardia, Syncope, Varicosities, Edema, Cyanosis Respiratory: No: Cough, Short of Breath, Other Gastrointestinal: No: Nausea, Vomiting, Diarrhea Genitourinary: No: Decreased Urinary Output, Oliguria Musculoskeletal: No: Limited ROM, Weakness, Cramping, Edema, Pain Skin: No Rash, No Itching, No Dryness, No Lumps, No Change in Pigmentation, No Change in Nails, No Alopecia, No Lesions Neurologic: No: Weakness, Dizziness, Syncope, Focal Abnormalities, Coordination Problem, Headache, Slurred Speech, Seizures Psychiatric: No: Depression, Suicidal Ideations, Homicidal Ideation Endocrine: No: Heat Intolerance, Cold Intolerance, Polydipsia, Polyuria, Other Physical Exam Narrative GENERAL: Well-nourished, well-developed patient. SKIN: Warm and dry. HEAD: Normocephalic and atraumatic. EYES: No scleral icterus. No injection or drainage. ENT: No nasal drainage noted. Mucous membranes pink. Airway patent. NECK: Supple, trachea midline. No JVD. CARDIOVASCULAR: Regular rate and rhythm without murmurs, gallops, or rubs. RESPIRATORY: Breath sounds equal bilaterally. No accessory muscle use. BREASTS: Bilateral exam showed no masses , no retractions, no nipple discharge. ABDOMEN/GI: Abdomen soft, non-tender, bowel sounds present, no rebound, no guarding Gravid to [-39] weeks size Fundal Height: [-39] GENITOURINARY: External Genitalia: There is moderate amount of swelling of the labia minora bilaterally In the vagina there is a large amount of curdy thick greenish discharge that could be her infection also could be just a yeast cream she recently, wet prep was done of the discharge and is pending at this time Cervix: [-] Dilatation: [1-] Effacement: [-] 50 Station: [-3] Presentation: [vtx-] Membranes: [intact ] Uterine Contractions: [-Occasional] FHT's: Category: [1-] Baseline: [-133] Reactive: [yes-] Variability: [mod-] Decels: [-0] EXTREMITIES: No cyanosis or edema. BACK: Nontender without obvious deformity. No CVA tenderness. NEUROLOGICAL: Awake and alert. Motor and sensory grossly within normal limits. Five out of 5 muscle strength in all muscle groups. Normal speech. Data Data Orders Wet Prep Profile (04/08/17 19:08) Labs wet prep negative for T.,C ,H MDM Interpretation(s) Patient is 21-year-old black female at 39 weeks with vaginal discharge and itching probable yeast infection of. wet prep is pending we'll treat accordingly. At this time no obstetric problem otherwise Plan The patient to use Terazol 3 suppositories 80 mg daily at bedtime for 3 nights. Terazol is a broader spectrum anti-yeast medication and she has not used that Product to date, was also given Lotrisone cream for the outside which is a steroid and anti-fungal preparation this mainly for relieving itching Diagnosis Diagnosis: Primary Impression: Monilial vulvovaginitis Additional Impression: 39 weeks gestation of Disposition: DISCHARGE HOME Condition: Stable Stephen Lopez II, MD Apr 08, 2017 19:16
== END 2017-04-08 20:20 | disposition home or self-care (01) ==
LOC: HOBED 18:06
DX: O23.593 Infection of other part of genital tract in pregnancy, third trimester (principal); B37.3 Candidiasis of vulva and vagina; Z3A.39 39 weeks gestation of pregnancy; Z79.899 Other long term (current) drug therapy
CPT/HCPCS: 59025; 87210

== ENCOUNTER 2017-04-12 22:14 | Inpatient (IN) | payer MEDICAID ==
[~2017-04-12] VITALS: Ht 162.6 cm; Wt 73.9 kg
--- NOTE | 2017-04-12 23:16 | PD ---
HPI Chief Complaint Contractions since 8 PM Date Seen: Apr 12, 2017 Time Seen: 23:13 Travel History International Travel<30 Days: No Contact w/Intl Traveler<30Days: No Known Affected Area: No History of Present Illness HPI 21-year-old who is at 39 weeks 4 days based on an EDC of April 15, 2017 comes in complaining of contractions since 8 PM this evening. Patient denies vaginal bleeding or discharge and states that she has had an uncomplicated course. She does have a positive group B strep in her urine Para: 1 : 2 History Past Medical History Medical History: Denies Significant Hx Obstetric History Obstetric History Spontaneous vaginal delivery 6 lbs. 14 oz. Past Surgical History Surgical History: No Previous Surgery Family History Family History: Negative Social History Alcohol Use: No Tobacco Use: No Substance Abuse: No Allergies-Medications (Allergen,Severity, Reaction): Coded Allergies: No Known Allergies (Unverified , 04/07/17) Home Meds Active Scripts Ferrous Gluconate 325 Mg [id number] Mg PO DAILY #30 TAB Ref 6 Prov:Drew Gonzales MD 04/01/17 Multi-Vit/Iron-Folic Aqaf-L59-Ovk C (Ferralet)90-1-0.012-120 mg Tab1 Tab-Cap PO DAILY #60 BOTTLE Ref 4 Prov:Drew Gonzales MD 04/01/17 Discontinued Scripts Terconazole Vaginal Cream 0.4 % Cream1 Appl VAGINAL HS #45 GM Ref 0 For seven days Prov:Dian Sky 03/23/17 Review of Systems Except as stated in HPI: all other systems reviewed are Neg Physical Exam Narrative GENERAL: Well-nourished, well-developed patient. SKIN: Warm and dry. HEAD: Normocephalic and atraumatic. EYES: No scleral icterus. No injection or drainage. ENT: No nasal drainage noted. Mucous membranes pink. Airway patent. NECK: Supple, trachea midline. No JVD. CARDIOVASCULAR: Regular rate and rhythm without murmurs, gallops, or rubs. RESPIRATORY: Breath sounds equal bilaterally. No accessory muscle use. BREASTS: Bilateral exam showed no masses , no retractions, no nipple discharge. ABDOMEN/GI: Abdomen soft, non-tender, bowel sounds present, no rebound, no guarding Gravid to [-38] weeks size Fundal Height: [-] GENITOURINARY: External Genitalia: intact and normal in appearance BUS glands: [-Normal] Cervix: [Posterior] Dilatation: [3] Effacement: [-50] Station: [-3] Presentation: [Vertex-] Membranes: [intact] Uterine Contractions: [-Every 5-8 minutes] FHT's: Category: [-1] Baseline: [-140] Reactive: [-Moderate] Variability: [-Moderate] Decels: [-Absent] EXTREMITIES: No cyanosis or edema. BACK: Nontender without obvious deformity. No CVA tenderness. NEUROLOGICAL: Awake and alert. Motor and sensory grossly within normal limits. Five out of 5 muscle strength in all muscle groups. Normal speech. Recheck at 2330 Spontaneous rupture membranes with clear fluid Cervix is 4/80/-2 cephalic Data Data Vital Signs Reviewed: Yes [facility] Medical Record Reviewed: Yes Plan 21-year-old with spontaneous rupture membranes in active labor at 39 weeks 4 days Group B strep prophylaxis with penicillin due to the positive GBS in urine Diagnosis Diagnosis: Primary Impression: 39 weeks gestation of Additional Impressions: Rupture of membranes with clear amniotic fluid Irregular uterine contractions Mother positive for group B Streptococcus colonization Courtney Leija MD Apr 12, 2017 23:16
[2017-04-12] MEDS ORDERED: LACTATED RINGER'S 1000 ML INJ 1,000 ML IV PRN (23:36)
[2017-04-12] MEDS ORDERED: LACTATED RINGER'S 1000 ML INJ 1,000 ML IV SCH (23:36)
[2017-04-12] MEDS ORDERED: PENICILLIN G POTASSIUM INJ 5,000,000 UNITS in SODIUM CHLORIDE 0.9% INJ 100 ML IV ONE (23:45)
[2017-04-12] MEDS ORDERED: CITRIC ACID-SODIUM CITRATE LIQ 30 ML UDC PO SCH (23:45)
[2017-04-12] MEDS ORDERED: ONDANSETRON HCL 4 MG/2 ML VIAL IV PRN (23:45)
[2017-04-12] MEDS ORDERED: LIDOCAINE HCL 1% 50 ML VIAL I-DERMAL PRN (23:45)
[2017-04-12] MEDS ORDERED: OXYTOCIN 30 UNITS-500ML PREMIX 500 ML IV ONE (23:45)
[2017-04-12] MEDS ORDERED: MINERAL OIL 10 ML VIAL TOPICAL PRN (23:45)
[2017-04-12] MEDS ORDERED: SODIUM CHLORID 0.9% 500 ML INJ 500 ML IV PRN (23:45)
[2017-04-12] MEDS ORDERED: LIDOCAINE HCL 1% 50 ML VIAL INFIL PRN (23:45)
[2017-04-12 23:52] LABS: AUTOMATED NEUTROPHIL # 4.8 TH/MM3 (1.8-7.7); BASOPHIL % 0.3 % (0.0-2.0); EOSINOPHIL # 0.1 TH/MM3 (0-0.4); EOSINOPHIL % 1.6 % (0.0-4.0); HEMATOCRIT 31.6 % (35.0-46.0); HEMO FLAGS DIFF FINAL; LYMPH % 28.6 % (9.0-44.0); LYMPHOCYTE # 2.3 TH/MM3 (1.0-4.8); MEAN CELL VOLUME 80.7 FL (80.0-100.0); MEAN CORPUSCULAR HEMOGLOBIN 26.5 PG (27.0-34.0); MEAN CORPUSCULAR HGB CONC 32.8 % (32.0-36.0); MONO % 9.4 % (0.0-8.0); NEUT % 60.1 % (16.0-70.0); PLATELET COUNT 323 TH/MM3 (150-450); RED BLOOD COUNT 3.92 MIL/MM3 (4.00-5.30); RED CELL DISTRIBUTION WIDTH 16.8 % (11.6-17.2)
[2017-04-12] MEDS ORDERED: SODIUM CHLOR 0.9% 1000 ML INJ 1,000 ML IV PRN (23:56)
[2017-04-13] VITALS (46 sets, daily range): BP systolic 94–161; BP diastolic 51–94; PULSE 54–150; RESP 16–18; TEMP 97.7–98.3
[2017-04-13] MEDS ORDERED: fentaNYL 2MCG-BUPIV 0.125% INJ 100 ML ONE (00:15)
[2017-04-13 00:21] LABS: BACTERIA, URINE OCC /hpf; BLOOD, URINE NEG (NEG); COMMENT (UR) CULTURE INDICATED; CULTURE IF INDICATED CULTURE INDICATED; GLUCOSE,URINE NEG (NEG); KETONE, URINE NEG (NEG); MUCUS URINE FEW /lpf (OCC); NITRITE,URINE NEG (NEG); SQUAMOUS EPITHELIAL CELL URINE 6 /hpf (0-5); URINE COLOR LIGHT-YELLOW (YELLW/STRAW)
[2017-04-13] MEDS ORDERED: PENICILLIN G POTASSIUM INJ 2,500,000 UNITS in SODIUM CHLORIDE 0.9% INJ 100 ML IV SCH (03:45)
--- NOTE | 2017-04-13 04:26 | PD.OB.DELI ---
Delivery Date: Apr 13, 2017 Anesthesia: Epidural Episiotomy: None Vaginal Delivery: Normal Presentation: Occiput anterior Nuchal Cord: x1 Delayed cord clamping (45 sec): No (Resuscitation needed) Infant: Male One Minute : 7 Five Minute : 9 Weight: [id number] Placenta: Spontaneous delivery, Intact, 3 vessel cord, Cord pH Laceration: Vaginal laceration (bilateral periurethral not repaired) Additional Information Patient with deceleration to 60 x 2 minutes. Baby was OP and anterior lip. Manual rotation performed to OA with good expulsive efforts in mother resulted in rapid delivery. Courtney Leija MD Apr 13, 2017 04:26
[2017-04-13] MEDS ORDERED: BENZOCAINE 20% TOPICAL SPRAY 60 ML CAN TOPICAL PRN (04:30)
[2017-04-13] MEDS ORDERED: SODIUM CHLORIDE 0.9% FLUSH 10 ML FLUSH IV FLUSH PRN (04:30)
[2017-04-13] MEDS ORDERED: oxyCODONE/ACETAMINOPHEN 5 MG/325 MG TAB PO PRN ×2 (04:30)
[2017-04-13] MEDS ORDERED: WITCH HAZEL 50%/GLYCERIN 12.5% 40 PAD JAR TOPICAL PRN (04:30)
[2017-04-13] MEDS ORDERED: ALUMINUM/MAGNESIUM/SIMETH 30 ML CUP PO PRN (04:30)
[2017-04-13] MEDS ORDERED: ZOLPIDEM TARTRATE 5 MG TAB PO PRN (04:30)
[2017-04-13] MEDS ORDERED: ONDANSETRON ODT 4 MG TAB PO PRN (04:30)
[2017-04-13 04:38] LABS: BLOOD GAS BASE EXCESS -3.8 mmol/L (-2-2); BLOOD GAS O2 HGB SATURATION 14 % (90-100); CORD BLOOD GAS HCO3 23 mmol/L (21-29); CORD BLOOD GAS PCO2 60 mmHG (34-78); CORD BLOOD GAS PH 7.21 (7.14-7.42); CORD BLOOD GAS PO2 13 mmHG (3.0-40.0); DRAW SITE CORD BLOOD; STAT YES
[2017-04-13] MEDS ORDERED: SODIUM CHLORIDE 0.9% FLUSH 10 ML FLUSH IV FLUSH SCH (09:00)
[2017-04-13] MEDS: ACETAMINOPHEN 325 MG TAB PO PRN ×2 (10:51→17:42)
[2017-04-13] MEDS: DOCUSATE SODIUM 50 MG/SENNA 8.6 MG TAB PO PRN (10:51)
[2017-04-13] MEDS: IBUPROFEN 600 MG TAB PO PRN ×2 (10:51→17:42)
[2017-04-13] MEDS ORDERED: DIPHTH/TETANUS/ACEL PERTUSSIS (BOOSTER) 0.5 ML VIAL/PFS IM ONE (16:00)
[2017-04-13] MEDS ORDERED: MEASLES, MUMPS, RUBELLA VACCINE 0.5 ML VIAL SQ ONE (16:00)
[2017-04-14] MEDS: IBUPROFEN 600 MG TAB PO PRN ×4 (02:27→21:50)
[2017-04-14] MEDS: ACETAMINOPHEN 325 MG TAB PO PRN ×3 (02:27→21:50)
[2017-04-14] MEDS: DOCUSATE SODIUM 50 MG/SENNA 8.6 MG TAB PO PRN (08:12)
--- NOTE | 2017-04-14 08:36 | HHI.OB ---
Subjective Remarks 21 year old female s/p at 39/5 wks gestation, PPD 1. AFVSS. Patient reports she is feeling well. Bleeding is decreasing and pain is well- controlled. She is breast feeding and bonding well with baby. Ambulating without difficulties. She is tolerating a diet without nausea or vomiting. She has not had a bowel movement. She has not passed gas. Denies chest pain, dysuria , shortness of breath, or calf pain. Objective Vitals/I&O Vital Signs Date Time Temp Pulse Resp B/P Pulse Ox O2 Delivery O2 Flow Rate FiO2 04/13/17 20:29 98.0 04/13/17 20:29 67 18 118/69 Objective Remarks GENERAL: Well-nourished, well-developed patient. CARDIOVASCULAR: Regular rate and rhythm without murmurs, gallops, or rubs. RESPIRATORY: Breath sounds equal bilaterally. No accessory muscle use. ABDOMEN/GI: Abdomen soft, mildly tender tender. Fundus: Firm, mildly tender just below umbilicus. GENITOURINARY: Light to moderate bleeding. EXTREMITIES: No cyanosis or edema, non-tender, without signs of DVT. Medications and IVs Current Medications Medications (Trade) Dose Ordered Sig/Smitha Route Start Time Stop Time Status Last Admin (NS Flush) 2 ml BID IV FLUSH 04/13/17 09:00 (NS Flush) 2 ml UNSCH PRN IV FLUSH 04/13/17 04:30 (Tylenol) 650 mg Q4H PRN PO 04/13/17 04:30 04/14/17 08:12 (Motrin) 600 mg Q6H PRN PO 04/13/17 04:30 04/14/17 08:12 (Percocet 5-325 Mg) 1 tab Q4H PRN PO 04/13/17 04:30 (Percocet 5-325 Mg) 2 tab Q4H PRN PO 04/13/17 04:30 (Americaine 20% Top Spr) 1 spray Q4H PRN TOPICAL 04/13/17 04:30 04/13/17 10:51 (Tucks Pads) 1 applic QID PRN TOPICAL 04/13/17 04:30 04/13/17 10:51 (Joaquina-Colace) 2 tab Q12H PRN PO 04/13/17 04:30 04/14/17 08:12 (Ambien) 5 mg HS PRN PO 04/13/17 04:30 (Mag-Al Plus Susp Liq) 15 ml Q8H PRN PO 04/13/17 04:30 (Zofran Odt) 4 mg Q6H PRN PO 04/13/17 04:30 Assessment/Plan Problem List: (1) Normal vaginal delivery Assessment and Plan 21 yo female s/p , PPD 1 - AFVSS - Continue routine care - Motrin PRN pain - Encourage OOB - Pelvic rest x 6 wks - Contraception: Undecided - Anticipate D/C 04/15 Micha Hand MD R1 Apr 14, 2017 08:36
[2017-04-14 08:41] VITALS: BP 136/83; PULSE 61; RESP 18; TEMP 98
[2017-04-14 10:05] LABS: RAPID PLASMA REAGIN SCREEN NON-REACTIVE (NON-REACTVE)
--- NOTE | 2017-04-14 10:34 | HHI.DCPOC ---
Discharge Care Plan Diagnosis: (1) Normal vaginal delivery Report Symptoms to Your Doctor -Temperature above 100.5 degrees -Redness, of incision or excessive or foul smelling drainage -Unusual pain or calf pain -Increased vaginal bleeding -Painful or difficulty urinating -Feelings of extreme sadness or anxiety after 2 weeks Goals to Promote Your Health * To prevent worsening of your condition and complications * To maintain your health at the optimal level Directions to Meet Your Goals Take your medications as prescribed Follow your dietary instruction Follow activity as directed Ensure plenty of rest for recovery Drink fluids for hydration Keep your appointments as scheduled Take your immunizations and boosters as scheduled If your symptoms worsen call your PCP, if no PCP go to Urgent Care Center or Emergency Room Smoking is Dangerous to Your Health. Avoid second hand smoke Call the 24-hour crisis hotline for domestic abuse at Micha Hand MD R1 Apr 14, 2017 10:34
[2017-04-14 20:30] VITALS: BP 135/93; PULSE 66; RESP 16; TEMP 98.4
[2017-04-15] MEDS: ACETAMINOPHEN 325 MG TAB PO PRN ×2 (04:29→11:11)
[2017-04-15] MEDS: IBUPROFEN 600 MG TAB PO PRN ×2 (04:29→11:11)
[2017-04-15] MEDS ORDERED: IBUP-232 PO (07:15)
--- NOTE | 2017-04-15 07:19 | HHI.OB ---
Subjective Post Day: 2 Remarks 21 year old female s/p at 39/5 wks gestation, PPD 2. AFVSS. Pt feeling well. Bleeding is decreasing and pain is well-controlled. She is breast feeding and bonding well with baby. Ambulating without difficulties. She is tolerating a diet without nausea or vomiting. She has not had a bowel movement but is passing flatus. Denies chest pain, dysuria, shortness of breath, N/V/D and DVT pain. Objective Vitals/I&O Vital Signs Date Time Temp Pulse Resp B/P Pulse Ox O2 Delivery O2 Flow Rate FiO2 04/14/17 20:30 135/93 04/14/17 20:30 98.4 66 16 04/14/17 08:41 98.0 04/14/17 08:41 61 18 136/83 Objective Remarks GENERAL: Well-nourished, well-developed patient. CARDIOVASCULAR: Regular rate and rhythm without murmurs, gallops, or rubs. RESPIRATORY: Breath sounds equal bilaterally. No accessory muscle use. ABDOMEN/GI: Abdomen soft, mildly tender tender. Fundus: Firm, mildly tender just below umbilicus. GENITOURINARY: Light to moderate bleeding. EXTREMITIES: No cyanosis or edema, non-tender, without signs of DVT. Medications and IVs Current Medications Medications (Trade) Dose Ordered Sig/Smitha Route Start Time Stop Time Status Last Admin (NS Flush) 2 ml BID IV FLUSH 04/13/17 09:00 (NS Flush) 2 ml UNSCH PRN IV FLUSH 04/13/17 04:30 (Tylenol) 650 mg Q4H PRN PO 04/13/17 04:30 04/15/17 04:29 (Motrin) 600 mg Q6H PRN PO 04/13/17 04:30 04/15/17 04:29 (Percocet 5-325 Mg) 1 tab Q4H PRN PO 04/13/17 04:30 (Percocet 5-325 Mg) 2 tab Q4H PRN PO 04/13/17 04:30 (Americaine 20% Top Spr) 1 spray Q4H PRN TOPICAL 04/13/17 04:30 04/13/17 10:51 (Tucks Pads) 1 applic QID PRN TOPICAL 04/13/17 04:30 04/13/17 10:51 (Joaquina-Colace) 2 tab Q12H PRN PO 04/13/17 04:30 04/14/17 08:12 (Ambien) 5 mg HS PRN PO 04/13/17 04:30 (Mag-Al Plus Susp Liq) 15 ml Q8H PRN PO 04/13/17 04:30 (Zofran Odt) 4 mg Q6H PRN PO 04/13/17 04:30 Assessment/Plan Problem List: (1) Normal vaginal delivery Assessment and Plan 21 yo female s/p , PPD 2 - AFVSS - Continue routine care - Motrin PRN pain - Pelvic rest x 6 wks - Contraception: will discuss with OB upon f/u visit in 6 weeks - D/C 04/15 Dyllan Kaiser MD R1 Apr 15, 2017 07:19
[2017-04-15 08:00] VITALS: BP 128/84; PULSE 64; RESP 16; TEMP 97.5
[2017-04-15] MEDS ORDERED: PENI500T PO (08:39)
== END 2017-04-15 14:10 | disposition home or self-care (01) | DRG 775 ==
LOC: HOBED 22:14 → H2EA 23:35 → H1EA 04-13 06:46
PROVIDERS: ADMIT Obstetrics & Gynecology Obstetrics; ATTEND Obstetrics & Gynecology Obstetrics
PROC: 10D07Z7 Extraction of Products of Conception, Internal Version, Via Natural or Artificial Opening (ICD-10-PCS; principal; 2017-04-13)
DX: O69.81X0 Labor and delivery complicated by cord around neck, without compression, not applicable or unspecified (principal); O99.824 Streptococcus B carrier state complicating childbirth; O70.0 First degree perineal laceration during delivery; Z37.0 Single live birth; Z3A.39 39 weeks gestation of pregnancy
CPT/HCPCS: 81001; 82805; 85025; 86403; 86592; 86900; 86901; 87086; 90715; J2540; J7120

== ENCOUNTER 2017-11-15 05:09 | Emergency (ER) | payer MEDICAID ==
[~2017-11-15] VITALS: Ht 162.6 cm; Wt 65.0 kg
[2017-11-15 05:09] VITALS: BP 116/78; PULSE 67; RESP 16; TEMP 98.2; O2SAT 100
[~2017-11-15 05:09] MED LIST changes: -FERR325T72 PO; -FERRTAB2 PO; +LEVO13.5 I-UTERINE
--- NOTE | 2017-11-15 05:41 | PD ---
HPI . 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 She reports an associated foul odor. She denies vaginal discharge. She denies pelvic pain. She denies urinary tract symptoms. She has not tried eating at home for the itching. She reports a history of eczema and states that she usually uses aloe for her eczema but has not used it on her genitalia. Symptoms are mild and continuous with no modifying factors. PFSH Past Medical History Medical History: Denies Significant Hx Hx Anticoagulant Therapy: No Diabetes: No Diminished Hearing: No ?: Unknown : 2 Para: 1 Past Surgical History Surgical History: No Previous Surgery Social History Alcohol Use: No Tobacco Use: No Substance Use: No Allergies-Medications (Allergen,Severity, Reaction): Coded Allergies: No Known Allergies (Unverified Adverse Reaction, Unknown, 11/15/17) Reported Meds & Prescriptions Reported Meds & Active Scripts Active Reported Morena (Levonorgestrel (Iud)) 14 Mcg/24 Hour (3 Years) Iud 13.5 Mg I-UTERINE ONCE Review of Systems Except as stated in HPI: all other systems reviewed are Neg Physical Exam Narrative GENERAL: Awake and alert and in no acute distress. SKIN: Warm and dry. HEAD: Normocephalic/atraumatic. EYES: Pupils are equal. Extraocular movements are intact. NECK: Normal range of motion. CARDIOVASCULAR: Regular rate and rhythm. RESPIRATORY: Nonlabored respirations. ABDOMEN: Soft and nontender. : She has thickened, dry skin on her labia majora. It has the typical appearance of eczema. She has no discharge in the vaginal vault. There is no tenderness on bimanual exam. MUSCULOSKELETAL: Atraumatic. NEUROLOGICAL: Nonfocal. PSYCHIATRIC: Appropriate mood and affect. Data Data Last Documented VS Vital Signs Date Time Temp Pulse Resp B/P (MAP) Pulse Ox O2 Delivery O2 Flow Rate FiO2 11/15/17 05:09 98.2 67 16 116/78 (91) 100 Room Air Orders Orders Gc And Chlamydia Pcr (11/15/17 05:32) Wet Prep Profile (11/15/17 05:32) Labs Laboratory Tests Test 11/15/17 05:45 Clue Cells (Wet Prep) PRESENT Vaginal Trichomonas (Wet Prep) NONE SEEN Vaginal Yeast (Wet Prep) NONE SEEN MDM Medical Decision Making Medical Screen Exam Complete: Yes Emergency Medical Condition: Yes Differential Diagnosis Differential diagnosis of vaginal pain includes but is not limited to yeast infection, herpes, local trauma, UTI Narrative Course This patient presents with itching of the skin of her external genitalia. Her examination is typical of eczema on her labia majority. I have sent a wet prep and a GC/chlamydial DNA probe but have a very low index of suspicion for either of these. wet prep>>Clue cells She will be given a prescription for Flagyl. She will be instructed to use Vaseline on the external genitalia. She can take Benadryl as needed for itching. Diagnosis Primary Impression: Perineal itching, female Additional Impression: Bacterial vaginosis Patient Instructions: Bacterial Vaginosis (DC), Eczema (ED), General Instructions Additional Instructions: Use Vaseline in your external genitalia. You may take Benadryl, 2 every 4 hours as needed for itching. Cool compresses or ice packs may help the itching as well. Med/Other Pt SpecificInfo: Prescription(s) given Scripts Metronidazole (Flagyl) 500 Mg Tab 500 MG PO BID for Infection for 7 Days, #14 TAB 0 Refills Prov: Dari Lewis MD 11/15/17 Disposition: 01 DISCHARGE HOME Condition: Stable Dari Lewis MD Nov 15, 2017 05:41
[2017-11-15] MEDS ORDERED: METR-1 PO (06:17)
== END 2017-11-15 06:37 | disposition home or self-care (01) ==
LOC: NEPE 05:09
DX: L29.0 Pruritus ani (principal); N76.0 Acute vaginitis; B96.89 Other specified bacterial agents as the cause of diseases classified elsewhere
CPT/HCPCS: 87210; 87491; 87591; 99283

== ENCOUNTER 2017-12-07 13:29 | Emergency (ER) | payer MEDICAID ==
[~2017-12-07] VITALS: Ht 162.6 cm; Wt 67.0 kg
[~2017-12-07 13:29] MED LIST changes: +METR-1 PO
[2017-12-07 14:09] VITALS: BP 124/64; PULSE 81; RESP 18; TEMP 99; O2SAT 100
[2017-12-07 14:41] LABS: BILIRUBIN, URINE NEG (NEG); BLOOD, URINE NEG (NEG); GLUCOSE,URINE NEG (NEG); KETONE, URINE NEG (NEG); NITRITE,URINE NEG (NEG); PH, URINE 5.5 (5.0-8.5); SQUAMOUS EPITHELIAL CELL URINE 13 /hpf (0-5); TRANSITIONAL EPI CELLS, URINE <1 /hpf; URINE COLOR YELLOW (YELLW/STRAW); URINE LEUKOCYTE ESTERASE LARGE (NEG)
[2017-12-07 16:08] VITALS: BP 147/91; PULSE 78; RESP 18; O2SAT 100
--- NOTE | 2017-12-07 16:42 | PD ---
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 She complains of vaginal discharge and itching. She's not having any pelvic pain. Symptoms severity is mild to moderate. No alleviating factors. Duration 3 days PFSH Past Medical History Medical History: Denies Significant Hx Hx Anticoagulant Therapy: No Diabetes: No Diminished Hearing: No Tetanus Vaccination: < 5 Years Influenza Vaccination: No ?: Not LMP: 11/25/17 : 2 Para: 1 Past Surgical History Surgical History: No Previous Surgery Social History Alcohol Use: No Tobacco Use: No Substance Use: No Allergies-Medications (Allergen,Severity, Reaction): Coded Allergies: No Known Allergies (Unverified Adverse Reaction, Unknown, 12/07/17) Reported Meds & Prescriptions Reported Meds & Active Scripts Active Reported [place]na (Levonorgestrel (Iud)) 14 Mcg/24 Hour (3 Years) Iud 13.5 Mg I-UTERINE ONCE Review of Systems General / Constitutional: No: Fever HENT: No: Headaches Cardiovascular: No: Chest Pain or Discomfort Respiratory: No: Cough Gastrointestinal: No: Vomiting Genitourinary: No: Urgency Physical Exam Narrative GASTROINTESTINAL: Abdomen soft, non-tender, nondistended. Positive bowel sounds. No hepato-splenomegaly, or palpable masses. No guarding. SKIN: Focused skin assessment reveals no rash or ulcers. Skin is warm and dry. Palpation shows no induration or nodules. Pelvic: Speculum exam reveals thick white cottage cheeselike discharge. No bleeding or lesions seen no cervical motion tenderness Data Data Last Documented VS Vital Signs Date Time Temp Pulse Resp B/P (MAP) Pulse Ox O2 Delivery O2 Flow Rate FiO2 12/07/17 16:08 78 18 147/91 (109) 100 Room Air 12/07/17 14:09 99.0 Orders Orders Urinalysis - C+S If Indicated (12/07/17 14:11) Ed Urine Pregnancytest Poc (12/07/17 14:11) Labs Laboratory Tests Test 12/07/17 13:23 Urine Color YELLOW Urine Turbidity HAZY Urine pH 5.5 Urine Specific [place] 1.028 Urine Protein NEG mg/dL Urine Glucose (UA) NEG mg/dL Urine Ketones NEG mg/dL Urine Occult Blood NEG Urine Nitrite NEG Urine Bilirubin NEG Urine Urobilinogen LESS THAN 2.0 MG/DL Urine Leukocyte Esterase LARGE Urine RBC 1 /hpf Urine WBC 3 /hpf Urine Squamous Epithelial Cells 13 /hpf Urine Transitional Epithelial Cells <1 /hpf Microscopic Urinalysis Comment CULT NOT INDICATED MDM Medical Decision Making Medical Screen Exam Complete: Yes Emergency Medical Condition: Yes Medical Record Reviewed: Yes Differential Diagnosis yEast infection, PID, cervicitis Narrative Course I have reviewed the patient's electronic medical record. Patient has a classic clinical presentation of yeast infection. I don't feel this needs to be formally tested Recommending seven-day Monistat treatment and follow-up with primary care or TRAILER MECHANIC Diagnosis Primary Impression: Monilial vulvovaginitis Additional Instructions: Follow-up with primary care or SHAREPOINT DEVELOPER Utilize seven-day Monistat treatment which is [id number] Med/Other Pt SpecificInfo: Other Disposition: 01 DISCHARGE HOME Condition: Stable Nate Nicole MD Dec 07, 2017 16:42
[2017-12-07 16:50] VITALS: BP 147/91
== END 2017-12-07 16:55 | disposition home or self-care (01) ==
LOC: NEPD 13:29
DX: B37.3 Candidiasis of vulva and vagina (principal)
CPT/HCPCS: 81001; 84703; 99283